=== PATIENT | female | born 1975 | race Caucasian/White ===

== ENCOUNTER 2018-09-05 11:33 | Outpatient (REF) | payer BC, SELFPAY ==
--- NOTE | 2018-09-05 09:45 | PAPFT_PTH ---
PATIENT: Darlene Valente LOC: [facility] U#:[id number] AGE/SX: 43/F ROOM: RE09/05/[address]: IRMA Smart : 1975 BED: DIS: 09/05/2018 SPEC #: [id number] RECD: 09/05/18 13:07 STATUS: ARIANE REClem #: [id number] CEFERINO: 09/05/18 09:[address]: Libby Henderson DEPT: [facility] Cytology RECD BY: Fabi Mckeon ENTERED: 09/05/18 13:07 SP TYPE: PAPFT OTHR DR: Yenifer Iqbal Tissues: 1 - CX/ENDOCX FOR PAP SMEARS Procedures: PAP THIN PREP/UVM Screening Comments: [id number]
== END 2018-09-05 11:53 ==
LOC: LBN 11:33
PROVIDERS: PCP Physician Assistant Medical; Visit Provider Nurse Practitioner Family
DX: Z12.4 Encounter for screening for malignant neoplasm of cervix (principal)
CPT/HCPCS: 88142

== ENCOUNTER 2019-10-24 14:00 | Outpatient (REF) | payer BC, SELFPAY ==
--- NOTE | 2019-10-24 13:15 | PAPFT_PTH ---
PATIENT: Darlene Valente LOC: [facility] U#:[id number] AGE/SX: 44/F ROOM: RE10/24/[address]: IRMA Smart : 1975 BED: DIS: 10/24/2019 SPEC #: [id number] RECD: 10/27/19 12:56 STATUS: ARIANE REClem #: [id number] CEFERINO: 10/24/19 13:[address]: Libby Henderson DEPT: [facility] Cytology RECD BY: Fabi Mckeon ENTERED: 10/27/19 12:56 SP TYPE: PAPFT OTHR DR: Yenifer Iqbal Tissues: 1 - CX/ENDOCX FOR PAP SMEARS Procedures: PAP THIN PREP/UVM Screening HPV DNA PROBE Comments: [id number]
== END 2019-10-24 14:20 ==
LOC: LBN 14:00
PROVIDERS: PCP Physician Assistant Medical; Visit Provider Nurse Practitioner Family
DX: Z12.4 Encounter for screening for malignant neoplasm of cervix (principal); Z11.51 Encounter for screening for human papillomavirus (HPV)
CPT/HCPCS: 88142; 87624

== ENCOUNTER 2019-10-27 01:10 | Outpatient (CLI) | payer BC, SELFPAY ==
--- NOTE | 2019-10-27 06:30 | DI.MAMMO_ITS ---
EXAM: MG MAMMO SCREENING CLINICAL HISTORY: screening,Z12.39 TECHNIQUE: Bilateral full field digital CC and MLO mammographic images were obtained with 3D tomosyn thesis and utilizing computer aided detection (CAD). COMPARISON: Available for comparison. FINDINGS: Masses/Architectural Distortion: None seen. Microcalcifications: No suspicious pleomorphic-type are seen. Skin Thickening/Nipple Retraction: None. IMPRESSION: 1. No significant interval change with no specific features of malignancy noted. 2. Unless there is more urgent need, screening mammography is recommended, as per [employer] guidelines. BI-RADS Category 1 - Negative Breast Density - Category B - Scattered areas of fibroglandular density A negative radiographic report should not delay biopsy if a dominant or clinically suspicious mass is present. Up to ten percent of cancers are not identified on mammography. A negative report may reinforce clinical impression. Adenosis and dense breasts may obscure an underlying neoplasm. False positive reports average 6 to 10%. Patient will receive a letter notifying them of these results.
== END 2019-10-27 01:30 ==
PROVIDERS: PCP Physician Assistant Medical; Visit Provider Nurse Practitioner Family
DX: Z12.31 Encounter for screening mammogram for malignant neoplasm of breast (principal)
CPT/HCPCS: 77063; 77067

== ENCOUNTER 2021-02-04 15:23 | Outpatient (REF) | payer BC, SELFPAY ==
--- NOTE | 2021-02-04 15:00 | PAPFT_PTH ---
PATIENT: Darlene Valente LOC: [facility] U#:[id number] AGE/SX: 45/F ROOM: RE02/04/[address]: IRMA Smart : 1975 BED: DIS: 02/04/2021 SPEC #: [id number] RECD: 02/04/21 17:07 STATUS: ARIANE SALES #: [id number] CEFERINO: 02/04/21 15:[address]: Libby Henderson DEPT: [facility] Cytology RECD BY: Fabi Mckeon ENTERED: 02/04/21 17:07 SP TYPE: PAPFT OTHR DR: Yenifer Iqbal Tissues: 1 - CX/ENDOCX FOR PAP SMEARS Procedures: PAP THIN PREP/UVM Screening HPV DNA PROBE Comments: [id number]
== END 2021-02-04 15:24 | disposition home or self-care (01) ==
LOC: LBN 15:23
PROVIDERS: PCP Physician Assistant Medical; Visit Provider Nurse Practitioner Family
DX: Z12.4 Encounter for screening for malignant neoplasm of cervix (principal); Z87.410 Personal history of cervical dysplasia; Z11.51 Encounter for screening for human papillomavirus (HPV)
CPT/HCPCS: 88142; 87624

== ENCOUNTER 2022-07-03 08:57 | Emergency (ER) | payer BC, SELFPAY ==
--- NOTE | 2022-07-03 09:00 | DI.US_ITS ---
Exam(s) US ABDOMEN LIMITED EXAM: US ABDOMEN LIMITED CLINICAL HISTORY: RUQ pain TECHNIQUE: Ultrasound abdomen performed using standard protocol. COMPARISON: No exams were available for comparison FINDINGS: LIVER: Normal size and echogenicity. 1.1 centimeter cyst. GALLBLADDER: Multiple stones, largest measuring 1.9 cm. No evidence of wall thickening. No perichole cystic fluid identified. LEON'S SIGN: Negative. BILIARY SYSTEM: No intrahepatic or extrahepatic biliary ductal dilation. RIGHT KIDNEY: Normal size. No evidence of renal calculi. No evidence of hydronephrosis. No suspicious renal mass. No cyst identified. PANCREAS: Normal where visualized. ABDOMINAL AORTA AND IVC: Visualized portions normal caliber. ASCITES: None seen. IMPRESSION: Cholelithiasis. DATA REPOSITORY:
[2022-07-03 09:01] VITALS: BP 146/96; PULSE 106; RESP 18; TEMP 36.7; O2SAT 99
--- NOTE | 2022-07-03 09:13 | W.ED.GENAD ---
Discharge Plan Disposition Patient Disposition: Home Condition: Improving Discharge Details Clinical Impression: Acute cholangitis Primary Care Provider: Yenifer Iqbal ED Provider: Kavon King Home Meds and New Rx's Prescriptions: New ondansetron 4 mg tablet,disintegrating 4 mg PO Q6H PRN (Reason: nausea and vomiting) Qty: 14 0RF Continued albuterol sulfate 90 mcg/actuation aerosol powdr breath activated 2 inh IH Q6H PRN multivitamin Tablet 1 tab PO DAILY epinephrine 0.3 MG/0.3 ML auto-injector 0.3 mg IM PRN cholecalciferol (vitamin D3) 2,000 UNIT tablet 2,000 unit PO DAILY L norgest/e.estradiol-e.estrad [Seasonique] 0.15 mg-30 mcg (84)/10 mcg (7) tablets,dose pack,3 month 1 tab PO DAILY Qty: 182 2RF Discharge Instructions Instructions: Gallstones (ED) Additional Instructions: Please continue to take 600 mg of ibuprofen every 6 hours as needed for pain. Use antinausea medication as prescribed and start with clear liquid diet for the next 24 hours and slowly advance your diet as tolerated. Please avoid greasy fatty or fried foods as these may aggravate your symptoms. If you develop any significant worsening of symptoms or severe pain/uncontrollable nausea vomiting return immediately to the emergency department for reassessment and consideration of more emergent surgical follow-up. Stand Alone Forms: Work Release Referrals: [facility] [Provider Group] - 1 week Discharge Data Discharge Date/Time-TO BE ENTERED AT DEPARTURE: 07/03/22 11:07 Medical Decision Making Patient presenting to the emergency department for chief complaint of right upper quadrant abdominal pain. Patient states for the past year this is been going on intermittently and happens approximately once per month. She denies any factors that seem to correlate such as eating, medications, or other obvious factors. She states that typically last hours but this episode has lasted since last night and has not improved at all. She states multiple episodes of nausea and vomiting. Patient denies any urinary or vaginal symptoms, denies any other cold symptoms, does state fever chills but these are subjective and seem to correlate more with patient's pain. Patient has no history of abdominal surgeries, occasionally drinks wine no other significant past medical history. Physical exam shows some tenderness to the right upper quadrant with moderate to deep palpation, some mild CVA tenderness on the right side exam is otherwise unremarkable. Differential diagnosis to include cholangitis/ cholecystitis, enteritis, renal calculi. We will plan on checking labs including lipase, will initially start with ultrasound imaging of the right upper quadrant given high suspicion of gallbladder disease but will consider CT imaging depending on results. Pending results we will give patient IV fluids, ketorolac, and Zofran. Reviewed patient's labs and CBC shows no leukocytosis or shift, platelet count is slightly elevated at 442 otherwise nondiagnostic CBC. Patient is not , urinalysis shows high specific gravity, trace protein trace blood and small amount of bilirubin, small amount of leukocyte Estrace with RBC count of 5-10 and WBC count 10-20. There was moderate amount of bacteria noted but they were calling this a contaminated specimen. We will consider antibiotics with flank pain and UA findings. CMP shows slightly elevated anion gap at 12.2, elevated AST at 68 and ALT of 87 normal bilirubin and alk phos, lipase within normal range and magnesium slightly low at 1.6. Will give oral repletion for magnesium. Received preliminary report from central supply technician that stated significant amount of gallstones but no acute cholecystitis. Reported no wall thickening or fluid around gallbladder. Given this I doubt obstructive cholecystitis. Patient reassessed and states significant improvement of pain and discomfort along with nausea. Did further ask if patient had any urinary symptoms and she denies all urinary symptoms. We will hold off on antibiotics given that patient is asymptomatic. Discussed with patient return and follow-up precautions but will place patient on surgery follow-up list for follow-up preferably in the next week for consideration of scheduled cholecystectomy. Patient was prescribed Zofran and recommended to continue to take ibuprofen as needed for pain. After discussion of diagnosis and plan of care patient has no further needs, questions, or concerns and states clear understanding to return to the emergency department for any worsening symptoms. This documentation was generated using [employer] dictation system, please disregard any oddities of phrase or misspellings. Imaging Data Radiologic Study: Imaging: Ultrasound Radiologist's impression: Exam(s) US ABDOMEN LIMITED EXAM: US ABDOMEN LIMITED CLINICAL HISTORY: RUQ pain TECHNIQUE: Ultrasound abdomen performed using standard protocol. COMPARISON: No exams were available for comparison FINDINGS: LIVER: Normal size and echogenicity. 1.1 centimeter cyst. GALLBLADDER: Multiple stones, largest measuring 1.9 cm. No evidence of wall thickening. No pericholecystic fluid identified. LEON'S SIGN: Negative. BILIARY SYSTEM: No intrahepatic or extrahepatic biliary ductal dilation. RIGHT KIDNEY: Normal size. No evidence of renal calculi. No evidence of hydronephrosis. No suspicious renal mass. No cyst identified. PANCREAS: Normal where visualized. ABDOMINAL AORTA AND IVC: Visualized portions normal caliber. ASCITES: None seen. IMPRESSION: Cholelithiasis. Lab Data Lab results reviewed: Yes I reviewed the patient's lab results. HPI General Mode of arrival: ambulatory. Date/Time Provider Initiated Documentation: 07/03/22 08:57. Limitations to Documentation: no limitations. Information obtained by: patient and RN notes reviewed. History of Present Illness 46 year old F presents to the emergency department with the chief complaint of Abdominal pain, described as moderate, with intensity rated at 3. Quality is described as sharp, and is localized to the abdomen and right (Upper quadrant). Patient reports radiation to back. Patient started experiencing this year(s) and it has been intermittent. No relieving factors improve symptom(s), No exacerbating factors reported . Patient notes fever/chills and loss of appetite. Patient did receive the following treatments prior to arrival, none Related Data Home Medications Medication Instructions Recorded Confirmed epinephrine 0.3 mg/0.3 mL 0.3 mg IM PRN 08/05/13 07/03/22 injection, auto-injector cholecalciferol (vitamin D3) 50 2,000 unit PO DAILY 09/04/16 07/03/22 mcg (2,000 unit) tablet albuterol sulfate 90 mcg/actuation 2 inh inhalation Q6H PRN 10/24/19 07/03/22 breath activated powder inhaler multivitamin 1 tab PO DAILY 10/24/19 07/03/22 L norgest/E estradiol-E estrad 1 tab PO DAILY #182 dose pk 03/14/22 07/03/22 0.15 mg-30 mcg (84)/10 mcg(7) tabs,3mos (Seasonique) ondansetron 4 mg disintegrating 4 mg PO Q6H PRN nausea and 07/03/22 tablet vomiting #14 tabs Previous Rx's Medication Instructions Recorded L norgest/E estradiol-E estrad 1 tab PO DAILY #182 dose pk 03/14/22 0.15 mg-30 mcg (84)/10 mcg(7) tabs,3mos (Seasonique) ondansetron 4 mg disintegrating 4 mg PO Q6H PRN nausea and 07/03/22 tablet vomiting #14 tabs Allergies Allergy/AdvReac Type Severity Reaction Status Date / Time Penicillins Allergy Severe Hives Unverified 07/03/22 09:05 shellfish derived Allergy Severe Anaphylaxsi Unverified 07/03/22 09:05 s General Stated Complaint: Abd Prob JEROME: 3 Review of Systems Constitutional Constitutional: Reports chills, Reports difficulty sleeping, Reports fever(s) (Subjective) and Reports poor appetite ENT Ears, Nose, Mouth, and Throat: Denies sore throat Cardiovascular Cardiovascular: Denies chest pain and Denies dyspnea Respiratory Respiratory: Denies cough and Denies dyspnea Gastrointestinal Gastrointestinal: Reports as per HPI, Reports abdominal pain, Denies melena, Denies change in bowel habits, Denies constipation, Denies diarrhea, Reports nausea and Reports vomiting Genitourinary Genitourinary: Denies hematuria, Denies dysuria, Reports flank pain and Denies vaginal discharge Musculoskeletal Musculoskeletal: Denies back pain Integumentary/Breasts Skin/Breast: Denies rash PFSH All Active Problems (Updated 07/03/22 @ 10:33 by Kavon King NP) Acute cholangitis (Acute) Annual physical exam (Acute) Contraception (Acute 09/02/15) Depression (Acute 08/06/14) Personal history of cervical dysplasia (Acute 03/29/12) 2004 ELIJAH II-III LEEP Rx Medical History Oral contraceptive pill surveillance (03/29/12) Surgical History Cervical Procedure (~2004) LEEP Family History Mother Anxiety Social History Smoking/Tobacco Use Status: Never Smoking risk assessment performed?: Yes Alcohol Intake: current Alcohol Intake frequency: a few times a month Alcohol type: wine Drug use: Never Substance use type: does not use Do you feel safe at home: Yes Do you feel safe in your relationship?: Yes Female Reproductive History Menstrual control method: pills History History 3 Para 3 Hx # Term Pregnancies Multiple births Hx # Pregnancies Ectopic pregnancies AB induced Hx Number of Living Children AB spontaneous Exam Const General: cooperative Orientation: alert, awake and oriented x3 Resp Effort & Inspection: normal respiratory effort and able to speak in complete sentences Auscultation: clear to auscultation bilaterally Cardio Rate: regular rate Rhythm: regular rhythm Heart Sounds: S1 normal and S2 normal GI Palpation: soft, not firm, no guarding, no masses, no pulsatile masses, not rigid, no splenomegaly and tender in the RUQ; not at McBurney's point, Leon's sign negative and Rovsing's sign negative Auscultation: normal bowel sounds General: CVA tenderness on the right Back/Spine/Pelvis Back: CVA tenderness Skin General skin exam: no rashes or lesions noted Neuro General: patient alert, patient awake, patient oriented x3, gait normal and moves all extremities Course Vital Signs Vital signs: Vital Signs Temperature 36.7 C 07/03/22 09:01 Pulse 106 H 07/03/22 09:01 Respiratory Rate 18 07/03/22 09:01 Blood Pressure 146/96 H 07/03/22 09:01 Pulse Oximetry 99 07/03/22 09:01 Temperature 36.7 C 07/03/22 09:01 Temperature Source Temporal Artery Scan 07/03/22 09:01 Pulse 106 H 07/03/22 09:01 Respiratory Rate 18 07/03/22 09:01 Respiratory Effort 07/03/22 09:03 Blood Pressure 146/96 H 07/03/22 09:01 Blood Pressure Position Sitting 07/03/22 09:01 Pulse Oximetry 99 07/03/22 09:01 Oxygen Delivery Method Room Air 07/03/22 09:01 Oxygen Flow Rate 0 07/03/22 09:01 Pain Level 4 07/03/22 09:03 PAWSS Have you Been Recently Intoxicated or Drunk Within the Last 30 days?: No Have you Ever Experienced Previous Episodes of Alcohol Withdrawal?: No Have you ever Experienced Withdrawal Seizures?: No Have you ever Experienced Delirium Tremens(DT)s?: No Have you ever undergone Alcohol Rehabilitation Treatment (i.e, inpt ot outpatient treatment programs)?: No Have you ever Experienced Blackouts?: No Have you ever Combined Alcohol with other Downers within the last 90 days?: No Have you ever Combined Alcohol with any other Substance of Abuse during the last 90 days?: No Result: 0
[2022-07-03] MEDS: Ketorolac 15 MG/ML VIAL IVP (09:25)
[2022-07-03] MEDS: Ondansetron 4 MG/2 ML VIAL IVP (09:25)
[2022-07-03 09:38] LABS: Abs Immature Grans 0.03 10^3/uL (0.0-0.06); Absolute Basophil Count 0.04 10^3/uL (0.0-0.2); Absolute Eosinophil Count 0.07 10^3/uL (0.0-0.7); Absolute Lymphocyte Count 2.34 10^3/uL (1.2-3.4); Absolute Monocyte Count 0.66 10^3/uL (0.1-0.8); Absolute Neutrophil Count 6.02 10^3/uL (1.2-6.7); Basophils % 0.4; Eosinophils % 0.8; HCT 36.4 % (36.0-46.0); HGB 11.7 g/dL (11.2-15.7); Immature Grans % 0.3; Lymphocytes % 25.5; MCH 27.1 pg (27.0-33.0); MCHC 32.1 % (32.0-36.0); MCV 85 fL (80-95); MPV 10.5 fL (8.0-11.0); Monocytes % 7.2; Neutrophils % 65.8; Platelet Count 442 10^3/uL (130-400); RBC 4.31 10^6/uL (3.93-5.22); RDW 14.4 % (11.7-14.6); RDW-SD 44.6 fL; WBC 9.16 10^3/uL (4.4-10.8)
[2022-07-03 09:40] LABS: Bilirubin Small (Negative); Blood Trace-intact (Negative); Clarity Sl Cloudy (Clear); Glucose Negative (Negative); Ketones Negative (Negative); Leukocyte Esterase Small (Negative); Nitrite Negative (Negative); Specific Gravity >= 1.030 (1.005-1.025); Urobilinogen 0.2 EU/dL (Up TO 0.2); pH 5.5 (5-8)
[2022-07-03 09:55] LABS: Bacteria Moderate HPF (Negative); C & S Indicated? No/Sq. Contamination; Casts Negative LPF (Negative); Crystals Negative HPF (Negative); Epithelial Cells Many HPF (Negative); Mucus Moderate (Negative)
[2022-07-03] MEDS: Normal Saline 1,000 ML 1000 ML IV (10:14)
[2022-07-03 10:17] LABS: ALT 87 U/L (14-59); AST 68 U/L (15-37); Albumin 3.8 g/dL (3.4-5.0); Alkaline Phosphatase 97 U/L (46-116); Anion Gap 12.2 mmol/L (3-11); BUN 11 mg/dL (7-18); Bilirubin, Total 0.6 mg/dL (0.2-1.0); CO2 23.8 mmol/L (21.0-32.0); CREATININE 0.9 mg/dL (0.55-1.02); Calcium 9.1 mg/dL (8.5-10.1); Chloride 105 mmol/L (98-107); Estimated GFR 80.34 (mL/min/1.73m2); Glucose 97 mg/dL (74-106); Lipase 189 U/L (73-393); Magnesium 1.6 mg/dL (1.8-2.4); Potassium 3.5 mmol/L (3.5-5.1); Sodium 141 mmol/L (136-145); Total Protein 7.8 g/dL (6.4-8.2)
--- NOTE | 2022-07-03 10:55 | NUR.NOTE ---
referral for general surgery requested for evaluation of gallstones and gallbladder. I have added this to the case management sheet. CLB
[2022-07-03 10:59] VITALS: BP 110/82; PULSE 69; RESP 16; O2SAT 100
[2022-07-03] MEDS: Magnesium Oxide 400 MG TAB PO (10:59)
== END 2022-07-03 11:07 | disposition home or self-care (01) ==
PROVIDERS: Emergency Provider Nurse Practitioner Family; PCP Physician Assistant Medical
DX: K83.09 Other cholangitis (principal); R79.89 Other specified abnormal findings of blood chemistry; R74.01 Elevation of levels of liver transaminase levels
CPT/HCPCS: 36415; 80053; 81025; 83690; 96361; 96374; 96375; 99284; 76705; 81003; 81015; 83735; 85025; J1885; J2405

== ENCOUNTER 2022-07-11 12:28 | Outpatient (CLI) | payer BC, SELFPAY ==
[2022-07-11 11:55] LABS: HCT 32.9 % (36.0-46.0); HGB 10.4 g/dL (11.2-15.7); MCH 26.9 pg (27.0-33.0); MCHC 31.6 % (32.0-36.0); MCV 85 fL (80-95); MPV 10.3 fL (8.0-11.0); Platelet Count 340 10^3/uL (130-400); RBC 3.86 10^6/uL (3.93-5.22); RDW 15.3 % (11.7-14.6); RDW-SD 47.4 fL; WBC 5.56 10^3/uL (4.4-10.8)
[2022-07-11 13:19] LABS: ALT 24 U/L (14-59); AST 16 U/L (15-37); Albumin 3.7 g/dL (3.4-5.0); Alkaline Phosphatase 69 U/L (46-116); Anion Gap 9.7 mmol/L (3-11); BUN 11 mg/dL (7-18); Bilirubin, Total 0.3 mg/dL (0.2-1.0); C-Reactive Protein 0.27 mg/dL (0.0-0.3); CO2 25.3 mmol/L (21.0-32.0); Calcium 9.3 mg/dL (8.5-10.1); Chloride 106 mmol/L (98-107); Glucose 93 mg/dL (74-106); Potassium 3.6 mmol/L (3.5-5.1); Sodium 141 mmol/L (136-145); Total Protein 7.3 g/dL (6.4-8.2)
[2022-07-11 14:08] LABS: Calculated LDL 192 mg/dL (<100); Cholesterol 260 mg/dL (<200); HDL Cholesterol 50 mg/dL (40-60); Triglyceride 94 mg/dL (<150)
[2022-07-13 11:55] LABS: Ferritin 9 ng/mL (8-252); Vitamin B12 228 pg/mL (193-986)
== END 2022-07-11 12:29 | disposition home or self-care (01) ==
LOC: LBO 12:29
PROVIDERS: PCP Physician Assistant Medical; Visit Provider Surgery
DX: K80.12 Calculus of gallbladder with acute and chronic cholecystitis without obstruction (principal); K83.09 Other cholangitis; R79.89 Other specified abnormal findings of blood chemistry
CPT/HCPCS: 36415; 80053; 80061; 85027; 82607; 82728; 86140

== ENCOUNTER 2022-07-14 10:17 | Day surgery (SDC) | payer BC, SELFPAY ==
--- NOTE | 2022-07-13 21:09 | W.PM.DSUDISC ---
Date of service: 07/14/22 Time of Service: 14:22 Discharge Plan Disposition Patient Disposition: Home Condition: Good Discharge Details Reason For Visit: Cholecystectomy Attending Provider: Rodrigo Griffith Primary Care Provider: Yenifer Iqbal Home Meds and New Rx's Prescriptions: New tramadol 50 mg tablet 50 mg PO Q8H PRN (Reason: pain) Qty: 9 0RF Rx Instructions: Take 1 tablet by mouth up to every 8 hours if needed for severe pain. Do not drive while using this medication. Continued albuterol sulfate 90 mcg/actuation aerosol powdr breath activated 2 inh IH Q6H PRN multivitamin Tablet 1 tab PO DAILY levofloxacin 500 mg tablet 500 mg PO DAILY Qty: 7 0RF prochlorperazine maleate [Compazine] 5 mg tablet 5 mg PO Q6H PRN PRN (Reason: nausea and vomiting) Qty: 10 0RF epinephrine 0.3 MG/0.3 ML auto-injector 0.3 mg IM PRN cholecalciferol (vitamin D3) 2,000 UNIT tablet 2,000 unit PO DAILY L norgest/e.estradiol-e.estrad [Seasonique] 0.15 mg-30 mcg (84)/10 mcg (7) tablets,dose pack,3 month 1 tab PO DAILY Qty: 182 2RF Discharge Instructions Instructions: Laparoscopic Cholecystectomy (GEN) Additional Instructions: 1. Resume all of your medications. 2. Okay to use tylenol and ibuprofen over the counter as needed. Use tramadol as needed for severe pain. 3. Ice packs and heating pads are fine to use for pain 4. Leave bandage in place for 24 hours, then remove. 5. Shower with warm soapy water. Pat dry. Use a bandaid if needed to protect your clothing. 6. No soaking or tub baths until I see you in the office. 7. No heavy lifting until I see you in the office. 8.Call the office (or go directly to the emergency room after hours) if you notice any of the following: Develop chills (warm to touch), or if you have a thermometer and your temperature is above 101 Difficulty breathing or difficultly swallowing Persistent vomiting Any bleeding ? exceeding one tablespoon 9. Call your physician if the site where your intravenous was started becomes red, swollen, painful, and warm to touch. Referrals: Rodrigo Griffith MD [ [facility] STAFF PHYSICIAN] - Activity:: No heavy lifting Remove Dressings/Wound Care:: 24 hours Shower/Bathe:: 24 hours Diet:: As Tolerated DS: Diagnosis Discharge Diagnosis (1) Cholelithiasis with acute on chronic cholecystitis: Status: Ruled-out Asessment and Plan: Laparoscopic cholecystectomy today. -Follow-up in the office 10 to 14 days
--- NOTE | 2022-07-13 21:12 | W.PM.OP ---
Date of service: 07/14/22 Time of Service: 14:25 Operative Note Operative Note DATE OF PROCEDURE: 07/14/22 PRE-OP DIAGNOSIS: Cholelithiasis POST-OP DIAGNOSIS: same PROCEDURE: Laparoscopic cholecystectomy SURGEON: Rodrigo Griffith RN PROCEDURES: Miri Delaney ANESTHESIA TYPE: General:No Airway Refer to Anesthesia Record ESTIMATED BLOOD LOSS: 50 PATHOLOGY: other (Gallbladder) COMPLICATIONS: None Patient was transported to: PACU Patient's condition: stable Indications: Malik is a 46-year-old woman with multiple episodes of symptomatic biliary colic Procedure Description: After satisfactory induction of general anesthesia, I prepped and draped the abdomen in usual fashion. Next, I began with a periumbilical incision. I dissected down to the fascia and elevated it with Mira clamps. I incised it sharply. Next, I passed a 12 mm operating port in the umbilical site. I secured it to the fascia with 0 Vicryl stitches. I then insufflated the peritoneal cavity. Next I inserted a 5 mm 30 degree scope and examined the underlying viscera. There was no evidence of injury created upon entry. I then placed the patient in some reverse Trendelenburg and left side down positioning. Then, with the assistance of the laparoscope, I used local anesthetic to anesthetize the midepigastric and 2 right upper quadrant port sites. Under the vision of the laparoscope, I passed 3 more 5 mm ports. I then grasped the gallbladder fundus and elevated cephalad. There were some adhesions of the greater omentum up onto the dome of the gallbladder that were easily dissected free. I began by dissecting the gallbladder infundibulum. I worked in a lateral to medial fashion. Once I skeletonized the cystic duct and cystic artery, with a satisfactory critical view of safety, I doubly clipped and divided them. I then used electrocautery to dissect the gallbladder off the gallbladder fossa. I passed the gallbladder into an Endo Catch bag and removed it by way of the umbilical site. I examined the surgical field. It was hemostatic. I then removed the 5 mm ports under the vision of the laparoscope. Finally, I removed the umbilical port site and closed the fascia with Vicryl stitches. Sites were irrigated, and the skin was closed with subcuticular stitches. Bandages were applied, patient was awakened from anesthesia, and transferred to the recovery unit.
[2022-07-14] VITALS (10 sets, daily range): BP systolic 105–151; BP diastolic 63–113; PULSE 72–90; RESP 16–22; TEMP 36.4–37; O2SAT 93–100; BMI 34.2
[2022-07-14] MEDS: Acetaminophen 500 MG TAB 1000 MG PO (11:04)
[2022-07-14] MEDS: Gabapentin 300 MG CAP 600 MG PO (11:05)
--- NOTE | 2022-07-14 11:08 | ANES.PREOP_ITS ---
General Info Date of Service Date Performed: 07/14/22 Height: 5 ft 6 in Weight: 96.2 kg Body Mass Index (BMI): 34.2 Surgical Procedure: Operation Date: 07/14/22 11:40 Proposed Procedure Side Surgeon p Cholecystectomy Laparoscopic, Possible Open, Possible Cholangiogram Rodrigo Griffith MD Meds Allergies and Home Medications Allergies Allergy/AdvReac Type Severity Reaction Status Date / Time Penicillins Allergy Severe Anaphylaxis Unverified 07/14/22 10:45 shellfish derived Allergy Severe Anaphylaxsi Unverified 07/14/22 10:45 s Home Medication Medication Instructions Recorded epinephrine 0.3 mg/0.3 mL 0.3 mg IM PRN 08/05/13 injection, auto-injector cholecalciferol (vitamin D3) 50 2,000 unit PO DAILY 09/04/16 mcg (2,000 unit) tablet albuterol sulfate 90 mcg/actuation 2 inh inhalation Q6H PRN 10/24/19 breath activated powder inhaler multivitamin 1 tab PO DAILY 10/24/19 L norgest/E estradiol-E estrad 1 tab PO DAILY #182 dose pk 03/14/22 0.15 mg-30 mcg (84)/10 mcg(7) tabs,3mos (Seasonique) levofloxacin 500 mg tablet 500 mg PO DAILY #7 tabs 07/11/22 prochlorperazine maleate 5 mg 5 mg PO Q6H PRN PRN nausea and 07/11/22 tablet (Compazine) vomiting #10 tabs Current Visit Medications: Current Medications Generic Name Dose Route Start Last Admin Trade Name Freq PRN Reason Stop Dose Admin Acetaminophen 1,000 mg 07/14/22 06:00 07/14/22 11:04 Acetaminophen 500 Mg Tab PO 07/14/22 23:59 1,000 mg PREOP PERLA Administration Gabapentin 600 mg 07/14/22 06:00 07/14/22 11:05 Gabapentin 300 Mg Cap PO 07/14/22 23:59 600 mg PREOP PERLA Administration Ringer's Solution 1,000 mls @ 80 mls/hr 07/14/22 06:00 IV 07/14/22 23:59 INFUSION PERLA Levofloxacin 750 mg in 150 mls @ 100 mls/hr 07/14/22 06:00 Levaquin Premixed Bag IVPB 07/14/22 16:00 PREOP PERLA IV Miscellaneous Supplies 1 each 07/14/22 06:00 Iv Access IV 07/14/22 23:59 DIRECTED PERLA Sodium Chloride 0 ml 07/14/22 06:00 Normal Saline Flush 10 Ml Syr IV 07/14/22 23:59 PRN PRN Sodium Chloride 0 ml 07/14/22 06:00 Normal Saline 10 Ml Vial IJ 07/14/22 23:59 DIRECTED PRN Sterile Water 0 ml 07/14/22 06:00 Water,Injection,Sterile 10 Ml Vial IJ 07/14/22 23:59 DIRECTED PRN PFSH Active Problems Active Problems: Problem Status Onset Code Personal history of cervical dysplasia 03/29/12 Z87.410 Depression 08/06/14 F32.9 Contraception 09/02/15 Z78.9 Annual physical exam Z00.00 Cholelithiasis with acute on chronic cholecystitis K80.12 Anemia D64.9 Other iron deficiency anemias D50.8 Elevated lipids E78.5 Medical History Medical History Asthma triggers: cold weather/exercise/illness Oral contraceptive pill surveillance (03/29/12) Surgical History Surgical History Cervical Procedure (~2004) LEEP History of excision of pilonidal cyst History of lateral meniscus repair of left knee Tobacco Smoking/Tobacco Use Status: Never Alcohol Alcohol Intake: current Alcohol intake frequency: a few times a month Alcohol type: wine Substance Use Substance use: Never Substance use type: does not use Prental History History 3 Para 3 Hx # Term Pregnancies Multiple births Hx # Pregnancies Ectopic pregnancies AB induced Hx Number of Living Children AB spontaneous Vital Signs and Lab Results Vital Signs Most Recent Vital Signs in EMR: Most Recent Vital Signs Temp Pulse Resp BP Pulse Ox 37 C 85 18 123/79 100 07/14/22 10:41 07/14/22 10:41 07/14/22 10:41 07/14/22 10:41 07/14/22 10:41 Lab Results Blood Type / Crossmatch: No Data to Display Complete Blood Count: White Blood Count 5.56 10^3/uL (4.4-10.8) 07/11/22 11:48 Red Blood Count 3.86 10^6/uL (3.93-5.22) L 07/11/22 11:48 Hemoglobin 10.4 g/dL (11.2-15.7) L 07/11/22 11:48 Hematocrit 32.9 % (36.0-46.0) L 07/11/22 11:48 Platelet Count 340 10^3/uL (130-400) 07/11/22 11:48 Complete Metabolic Panel: Sodium 141 mmol/L (136-145) 07/11/22 11:48 Potassium 3.6 mmol/L (3.5-5.1) 07/11/22 11:48 Chloride 106 mmol/L (98-107) 07/11/22 11:48 Carbon Dioxide 25.3 mmol/L (21.0-32.0) 07/11/22 11:48 BUN 11 mg/dL (7-18) 07/11/22 11:48 Creatinine 1.0 mg/dL (0.55-1.02) 07/11/22 11:48 Est GFR (CKD-EPI 2020) 70.80 (mL/min/1.73m2) 07/11/22 11:48 Magnesium 1.6 mg/dL (1.8-2.4) L 07/03/22 09:20 Calcium 9.3 mg/dL (8.5-10.1) 07/11/22 11:48 Albumin 3.7 g/dL (3.4-5.0) 07/11/22 11:48 Glucose 93 mg/dL (74-106) 07/11/22 11:48 C-Reactive Protein 0.27 mg/dL (0.0-0.3) 07/11/22 11:48 Liver Function Panel: Alanine Aminotransferase (ALT/SGPT) 24 U/L (14-59) 07/11/22 11: 48 Aspartate Amino Transf (AST/SGOT) 16 U/L (15-37) 07/11/22 11:48 Coagulation Panel: No Data to Display Cardiac Panel: No Data to Display Arterial Blood Gas: No Data to Display Venous Blood Gas: No Data to Display Pancreas Panel: Lipase 189 U/L (73-393) 07/03/22 09:20 Thyroid Panel: No Data to Display Infectious Disease: No Data to Display Blood Cultures: No Data to Display Toxicology Panel: No Data to Display Panel: No Data to Display Anesthesia Assessment and Plan Anesthesia History Personal History: No History of Anesthesia Complications and No History of General Anesthesia Family History: No Family History of Anesthesia Complications Exercise Tolerance Exercise Tolerance: Metabolic Equivalents>4 Pertinent Negatives Pertinent Negatives: No Symptoms of GERD and No Major Cardiovascular Symptoms or Complaints Cardiac & Pulmonary Exam Cardiac Exam: Normal S1/S2 Heart Sounds Pulmonary Exam: Clear Bilateral Breath Sounds Implantable Cardiac Device Does patient have a Pacemaker or an ICD?: No Airway Exam Known Difficult Airway: No Mallampati Class: 1 Mouth Opening: Normal (> 3cm) Thyromental Distance: Greater than 3 cm Neck Range of Motion: Full ROM Neck Circumference: Normal Teeth Condition: Normal Dentition ASA Classification ASA Score: ASA 2 Emergency Case?: No NPO Status NPO Status: NPO Clears >2 hours, Solids >8 hours Status Status: Negative HCG Anesthesia Plan Resuscitation Status: Full Code Anesthesia Technique: General Anesthesia Airway Planned: Endotracheal Tube Monitors Used: Standard Monitors
[2022-07-14] MEDS: Lactated Ringers 1,000 ML 80 ML IV (11:23)
[2022-07-14] MEDS: levoFLOXacin 750 MG/150 ML BAG 100 MG IVPB (11:39)
[2022-07-14] MEDS: Bupivacaine 0.25% Pres-Free 30 ML VIAL (13:20)
--- NOTE | 2022-07-14 13:55 | GB_PTH ---
PATIENT: Darlene Valente LOC: [facility] U#:[id number] AGE/SX: 46/F ROOM: RE07/14/[address]: Rodrigo Griffith MD : 1975 BED: DIS: 07/14/2022 SPEC #: [id number] RECD: 07/14/22 17:47 STATUS: ARIANE REQ #: [id number] CEFERINO: 07/14/22 13:[address]: Rodrigo Griffith DEPT: Surgical Specimen RECD BY: Fabi Mckeon ENTERED: 07/14/22 17:47 SP TYPE: GB OTHR DR: Yenifer Iqbal Tissues: 1 - GALLBLADDER Procedures: GROSS AND MICRO LEVEL 3 Comments: [id number]
[2022-07-14] MEDS: Droperidol 5 MG/2 ML VIAL 0.625 MG IVP ×2 (14:43→15:04)
--- NOTE | 2022-07-14 15:57 | W.ANESPOSTOP ---
Postoperative Evaluation Date, Time and Location Date Performed: 07/14/22 Time Performed: 15:57 Patient Location: PACU Vital Signs Most Recent Imported Vital Signs: Most Recent Vital Signs Temp Pulse Resp BP Pulse Ox 37.0 C 81 22 105/63 99 07/14/22 15:21 07/14/22 15:21 07/14/22 15:21 07/14/22 15:21 07/14/22 15:21 Pain Score Most Recent Pain Score: Most Recent Pain Score Pain Level 2 07/14/22 10:41 Assessment Mental Status: Awake (Alert & Oriented to Patient Baseline) Airway and Respiratory Function: Patent airway with normal (patient baseline) respiratory exam Cardiovascular Function: Hemodynamically Stable Hydration Status: Adequately Hydrated Nausea & Vomiting: Active Nausea or Vomiting Present Nausea and Vomiting Management: Nausea and vomiting active, being addressed with medication (Despite patient utilizing all orders for antiemetics, nausea persists. Patient requests to be discharged home. No active emesis. Discussed plan with Dr. Griffith and fariha with patient being discharged. ) Pain: Pain is tolerable per patient Peripheral Nerve Block: Patient did not receive a nerve block
== END 2022-07-14 16:55 | disposition home or self-care (01) ==
PROVIDERS: PCP Physician Assistant Medical; Visit Provider Surgery
PROC: 0FT44ZZ Resection of Gallbladder, Percutaneous Endoscopic Approach (ICD-10-PCS; CPT 47562; principal; 2022-07-14 11:30)
DX: K80.12 Calculus of gallbladder with acute and chronic cholecystitis without obstruction (principal); D50.8 Other iron deficiency anemias; F32.A Depression, unspecified; J45.909 Unspecified asthma, uncomplicated; K82.9 Disease of gallbladder, unspecified
CPT/HCPCS: 47562; 81025; 88304; J1100; J1790; J1885; J1956; J2250; J2405; J2704

== ENCOUNTER 2022-12-08 08:39 | Outpatient (CLI) | payer BC, SELFPAY ==
[2022-12-08 08:55] LABS: Abs Immature Grans 0.02 10^3/uL (0.0-0.06); Absolute Basophil Count 0.05 10^3/uL (0.0-0.2); Absolute Eosinophil Count 0.27 10^3/uL (0.0-0.7); Absolute Monocyte Count 0.49 10^3/uL (0.1-0.8); Absolute Neutrophil Count 2.69 10^3/uL (1.2-6.7); Eosinophils % 5.2; HCT 36.4 % (36.0-46.0); HGB 11.9 g/dL (11.2-15.7); Immature Grans % 0.4; Lymphocytes % 32.6; MCHC 32.7 % (32.0-36.0); MCV 89 fL (80-95); MPV 10.2 fL (8.0-11.0); Monocytes % 9.4; Neutrophils % 51.4; Platelet Count 290 10^3/uL (130-400); RBC 4.11 10^6/uL (3.93-5.22); RDW 13.7 % (11.7-14.6); RDW-SD 44.3 fL; WBC 5.22 10^3/uL (4.4-10.8)
[2022-12-08 10:36] LABS: Calculated LDL 200 mg/dL (<100); Cholesterol 262 mg/dL (<200); HDL Cholesterol 47 mg/dL (40-60); TSH (W/Ref FT4) 1.21 uIU/mL (0.36-3.74); Triglyceride 76 mg/dL (<150)
== END 2022-12-08 08:40 | disposition home or self-care (01) ==
LOC: LBO 08:39
PROVIDERS: PCP Physician Assistant Medical; Visit Provider Nurse Practitioner
DX: E78.5 Hyperlipidemia, unspecified (principal); L60.9 Nail disorder, unspecified; R53.83 Other fatigue
CPT/HCPCS: 36415; 80061; 84443; 85025

== ENCOUNTER 2023-06-20 10:40 | Outpatient (REF) | payer BC, SELFPAY | END 2023-06-20 10:41 | disposition home or self-care (01) | LOC: LBN 10:40 | PROVIDERS: PCP Nurse Practitioner; Visit Provider Obstetrics & Gynecology | DX: N89.8 Other specified noninflammatory disorders of vagina (principal) | CPT/HCPCS: 87480; 87510; 87660 ==

== ENCOUNTER → 2023-07-03 03:23 | Outpatient (CLI) | payer BC, SELFPAY ==
--- NOTE | 2023-07-03 16:30 | DI.MAMMO_ITS ---
Exam(s) MAMMO SCREENING EXAM: MAMMO SCREENING CLINICAL HISTORY: screening TECHNIQUE: Mammograms were interpreted according to the usual protocol including computer analysis w [employer]. CAD system, tomosynthesis and C-view imaging. COMPARISON: 2016 through 2019 FINDINGS: The breasts are composed of scattered fibroglandular densities, Breast Density category B. No suspicious masses or suspicious microcalcifications are seen. No skin thickening or abnormal axillary lymph nodes are seen. There has been no significant change from prior exams. IMPRESSION: BI-RADS Category 1, Negative mammogram Yearly screening mammography is recommended. Breast Density - Category B, scattered fibroglandular densities. A negative radiographic report should not delay biopsy if a dominant or clinically suspicious mass is present. Up to ten percent of cancers are not identified on mammography. A negative report may reinforce clinical impression. Adenosis and dense breasts may obscure an underlying neoplasm. False positive reports average 6 to 10%. Patient will receive a letter notifying them of these results.
== END ==
PROVIDERS: PCP Nurse Practitioner; Visit Provider Obstetrics & Gynecology
DX: Z12.31 Encounter for screening mammogram for malignant neoplasm of breast (principal); K80.00 Calculus of gallbladder with acute cholecystitis without obstruction
CPT/HCPCS: 77063; 77067

== ENCOUNTER 2023-07-09 08:33 | Day surgery (SDC) | payer BC, SELFPAY ==
--- NOTE | 2023-07-08 14:19 | W.PM.DSUDISC ---
Date of service: 07/09/23 Time of Service: 10:38 Discharge Plan Disposition Patient Disposition: Home Condition: Poor Discharge Details Reason For Visit: screening colonoscopy Attending Provider: Rodrigo Griffith Primary Care Provider: Mónica Campbell Home Meds and New Rx's Prescriptions: Continued melatonin gummies 8 mg PO HS PRN citalopram 20 mg tablet 20 mg PO DAILY Qty: 90 3RF epinephrine 0.3 mg/0.3 mL auto-injector 0.3 mg IM PRN Qty: 2 12RF atorvastatin 20 mg tablet 20 mg PO QPM Qty: 90 1RF multivitamin Tablet 1 tab PO DAILY Collagen Skin Renewal 30-833.3 mg tablet 1 tab PO DIRECTED L norgest/e.estradiol-e.estrad 0.15 mg-30 mcg (84)/10 mcg (7) tablets,dose pack,3 month 1 tab PO DAILY Qty: 182 2RF cholecalciferol (vitamin D3) 2,000 UNIT tablet 2,000 unit PO DAILY Discontinued bisacodyl [Dulcolax (bisacodyl)] 5 mg tablet,delayed release (DR/EC) 5 mg PO ONCE Qty: 4 0RF Rx Instructions: Colonoscopy Bowel Prep- Per Instructions polyethylene glycol 3350 17 gram/dose powder 238 g PO ONCE Qty: 238 0RF Rx Instructions: Colonoscopy Bowel Prep- Per Instructions albuterol sulfate 90 mcg/actuation aerosol powdr breath activated 2 inh IH Q6H PRN Discharge Instructions Instructions: Colorectal Polyps (GEN) Additional Instructions: Darlene, We were able to finish your colonoscopy today without any significant issues. I did find 1 polyp. It was quite small, and I removed it completely. Once I have the results on the type of polyp, I will be in touch with my recommendations for your next colonoscopy. If you have any questions in the meantime, please do not hesitate to call at any point. 1. If tolerated, consume a soft, low fiber diet for 1-2 days. 2. Do not drive, drink alcohol, operate machinery, make critical decisions, or do activities that require coordination or balance for 24 hours. 3. Because air was put into your colon during the procedure, expelling air from your rectum (passing gas or farting) is normal. 4. You may not have a bowel movement for 1-3 days because of the colonoscopy prep. This is normal. 5. Go directly to the emergency room if you notice any of the following: Develop chills (warm to touch), or if you have a thermometer and your temperature is above 101 Difficulty breathing or difficultly swallowing Persistent vomiting Severe abdominal pain, other than gas cramps Severe chest pain Black, tarry stools Any bleeding ? exceeding one tablespoon 6. Call your physician if the site where your intravenous was started becomes red, swollen, painful, and warm to touch. 7. Your physician has reviewed your pre-procedure medications. Please continue to take those medications as previously ordered. You will be given specific information/education regarding any changes to your medications before leaving. Activity:: Activity as Tolerated Diet:: As Tolerated Discharge Orders Discharge Orders: Discharge Order (Routine); Ordered 07/08/23 Ordered By: Rodrigo Griffith DS: Diagnosis Discharge Diagnosis (1) Encounter for screening colonoscopy: Status: Acute Asessment and Plan: Follow-up on polyp results
--- NOTE | 2023-07-08 14:21 | COLE_ITS ---
Date of service: 07/09/23 Time of Service: 10:39 Colonoscopy Report Date of procedure: 07/09/23 Pre-op diagnosis general: screening colonoscopy Post-op diagnosis procedure note: other (Colon polyp) Procedure: Colonoscopy with polypectomy Surgeon: Rodrigo Griffith Anesthesia Type: General:No Airway Estimated blood loss (mL): 5 Pathology: other (0.25 cm polyp at 130 cm from the anus) Complications: None Disposition: same day Indications: Kaylynn is a 47 year old women who needs a screening colonoscopy Prep: Miralax/Dulcolax Procedure Start Time: 10:04 Procedure End Time: 10:30 Retraction Time: 9 Findings: 0.25 cm polyp at 130 cm Procedure Description: After the induction of anesthesia, and with the patient in left lateral decubitus position, I began by performing an external anorectal exam.? Perineum and skin were normal, as was the anal verge.? There are perianal skin tags.? Next, I performed a digital rectal exam.? I did not appreciate any abnormal findings.? Next, I advanced a colonoscope into the rectal vault.? I performed retroflexion.? This was normal.? Using insufflation, I then advanced the colonoscope beyond the rectal folds and into the sigmoid colon before advancing towards the cecum.? The scope was noted to be in the cecum by identification of the ileocecal valve and appendiceal orifice.? I then began withdrawing the colonoscope using repeated irrigation as necessary for full evaluation of the colonic mucosa. Around 130 cm from the anal verge I identified a 0.25 cm polyp. ?It appeared flat in character. ?I was able to remove this with a cold forcep polypectomy. ?I examined the site, and there was minimal bleeding. ?Once this was completed, I continued to withdraw the scope and examine the remainder of the colonic mucosa.?Once the scope was withdrawn to the level of the rectum, great care was taken to examine portions of the rectal folds.? Finally, the scope was withdrawn and the patient was brought to the same-day surgery recovery unit as the anesthetic wore off. ?The findings and instructions were shared with the patient prior to discharge. Sharon Bowel Prep Sharon Bowel Prep Right Colon: 3 Left Colon: 3 Transverse Colon: 3 Total Score: 9
--- NOTE | 2023-07-08 16:00 | W.ANESPRE ---
General Info Date of Service Date Performed: 07/09/23 Height: 5 ft 6.5 in Weight: 100.301 kg Body Mass Index (BMI): 35.2 Surgical Procedure: Operation Date: 07/09/23 09:50 Proposed Procedure Side Surgeon shawna Griffith MD Meds Allergies and Home Medications Allergies Allergy/AdvReac Type Severity Reaction Status Date / Time Penicillins Allergy Severe Anaphylaxis Verified 07/09/23 09:00 shellfish derived Allergy Severe Anaphylaxsi Verified 07/09/23 09:00 s Home Medication Medication Instructions Recorded cholecalciferol (vitamin D3) 50 2,000 unit PO DAILY 09/04/16 mcg (2,000 unit) tablet citalopram 20 mg tablet 20 mg PO DAILY #90 tabs 11/29/22 epinephrine 0.3 mg/0.3 mL 0.3 mg (0.3 mL) IM PRN #2 ea 11/29/22 injection, auto-injector melatonin gummies 8 mg PO HS PRN 11/29/22 atorvastatin 20 mg tablet 20 mg PO QPM #90 tabs 01/16/23 L norgest/E estradiol-E estrad 1 tab PO DAILY #182 dose pk 06/20/23 0.15 mg-30 mcg (84)/10 mcg(7) tabs,3mos ascorbic acid 30 mg-collagen, 1 tab PO DIRECTED 06/20/23 hydrolyzed 833.3 mg tablet (Collagen Skin Renewal) multivitamin 1 tab PO DAILY 06/20/23 Current Visit Medications: Current Medications Generic Name Dose Route Start Last Admin Trade Name Freq PRN Reason Stop Dose Admin Hyoscyamine Sulfate 0.125 mg 07/08/23 14:22 Hyoscyamine 0.125 Mg Sl/Oral/Chew SL 08/07/23 14:21 DIRECTED PRN Ringer's Solution 1,000 mls @ 80 mls/hr 07/09/23 06:00 IV 08/05/23 23:59 INFUSION [facility] IV Miscellaneous Supplies 1 each 07/09/23 06:00 Iv Access IV 08/05/23 23:59 DIRECTED [facility] Ondansetron HCl 4 mg 07/08/23 14:22 Ondansetron 4 Mg/2 Ml Vial IVP 08/07/23 14:21 Q4H PRN PRN Nausea / Vomiting Sodium Chloride 0 ml 07/09/23 06:00 Normal Saline Flush 10 Ml Syr IV 08/05/23 23:59 PRN PRN Sodium Chloride 0 ml 07/09/23 06:00 Normal Saline 10 Ml Vial IJ 08/05/23 23:59 DIRECTED PRN Sterile Water 0 ml 07/09/23 06:00 Water,Injection,Sterile 10 Ml Vial IJ 08/05/23 23:59 DIRECTED PRN PFSH Active Problems Active Problems: Problem Status Onset Code Encounter for screening colonoscopy Z12.11 Vitamin D deficiency E55.9 Obesity E66.9 Hyperlipidemia E78.5 Decreased hearing of both ears H91.93 Depression 08/06/14 F32.9 Other iron deficiency anemias D50.8 Elevated lipids E78.5 Medical History Medical History SULEMA (stress urinary incontinence, female) Asthma triggers: cold weather/exercise/illness Oral contraceptive pill surveillance (03/29/12) Personal history of cervical dysplasia (03/29/12) 2004 ELIJAH II-III LEEP Rx Surgical History Surgical History Hx of cholecystectomy History of excision of pilonidal cyst History of lateral meniscus repair of left knee Cervical Procedure (~2004) LEEP Tobacco Smoking/Tobacco Use Status: Never Second hand exposure: No Alcohol Alcohol Intake: current Alcohol intake frequency: a few times a month Alcohol type: wine Details: 2-4 times per month, 1-2 at a time(or less) Substance Use Substance use: Never Substance use type: does not use Prental History History 3 Para 3 Hx # Term Pregnancies Multiple births Hx # Pregnancies Ectopic pregnancies AB induced Hx Number of Living Children AB spontaneous Vital Signs and Lab Results Vital Signs Most Recent Vital Signs in EMR: Temp Pulse Resp BP Pulse Ox 36.4 C L 86 16 147/88 H 99 07/09/23 09:03 07/09/23 09:03 07/09/23 09:03 07/09/23 09:03 07/09/23 09:03 Lab Results Blood Type / Crossmatch: No Data to Display Complete Blood Count: No Data to Display Complete Metabolic Panel: No Data to Display Liver Function Panel: No Data to Display Coagulation Panel: No Data to Display Cardiac Panel: No Data to Display Arterial Blood Gas: No Data to Display Venous Blood Gas: No Data to Display Pancreas Panel: No Data to Display Thyroid Panel: No Data to Display Infectious Disease: No Data to Display Blood Cultures: No Data to Display Toxicology Panel: No Data to Display Panel: No Data to Display Anesthesia Assessment and Plan Anesthesia History Personal History: No History of Anesthesia Complications Family History: No Family History of Anesthesia Complications Exercise Tolerance Exercise Tolerance: Metabolic Equivalents>4 Pertinent Negatives Pertinent Negatives: No Symptoms of GERD and No Major Cardiovascular Symptoms or Complaints Cardiac & Pulmonary Exam Cardiac Exam: Normal S1/S2 Heart Sounds Pulmonary Exam: Clear Bilateral Breath Sounds Implantable Cardiac Device Does patient have a Pacemaker or an ICD?: No Airway Exam Known Difficult Airway: No Mallampati Class: 1 Mouth Opening: Normal (> 3cm) Thyromental Distance: Greater than 3 cm Neck Range of Motion: Full ROM Neck Circumference: Normal Teeth Condition: Normal Dentition ASA Classification ASA Score: ASA 2 Emergency Case?: No NPO Status NPO Status: NPO Clears >2 hours, Solids >8 hours Status Status: Negative HCG Anesthesia Plan Resuscitation Status: Full Code Anesthesia Technique: General Anesthesia Airway Planned: Natural Airway Monitors Used: Standard Monitors Preoperative Comments:: 47 yo female for colo. Sig PMHx: asthma, depression, never smoker, occ EtOH. Previous Anes: - lap marissa, glide 3 grade 1, easy mask.
[2023-07-09 09:03] VITALS: BP 147/88; PULSE 86; RESP 16; TEMP 36.4; O2SAT 99
[2023-07-09] MEDS: Lactated Ringers 1,000 ML 80 ML IV (09:07)
[2023-07-09 09:50] VITALS: BMI 35.2
--- NOTE | 2023-07-09 10:24 | BOWEL_PTH ---
PATIENT: Darlene Valente LOC: [facility] U#:[id number] AGE/SX: 47/F ROOM: RE07/09/[address]: Rodrigo Griffith MD : 1975 BED: DIS: 07/09/2023 SPEC #: [id number] RECD: 07/09/23 12:37 STATUS: ARIANE REQ #: [id number] CEFERINO: 07/09/23 10:[address]: Rodrigo Griffith DEPT: Surgical Specimen RECD BY: Fabi Mckeon ENTERED: 07/09/23 12:39 SP TYPE: Bowel OTHR DR: Mónica Campbell APRN Tissues: 1 - BIOPSY BOWEL Procedures: GROSS AND MICRO LEVEL 4 Comments: [id number]
[2023-07-09 10:36] VITALS: BP 114/76; PULSE 72; RESP 18; TEMP 36.3; O2SAT 97
--- NOTE | 2023-07-09 10:57 | W.ANESPOSTOP ---
Postoperative Evaluation Date, Time and Location Date Performed: 07/09/23 Time Performed: 10:57 Patient Location: Day Surgery Unit Vital Signs Most Recent Imported Vital Signs: Most Recent Vital Signs Temp Pulse Resp BP Pulse Ox 36.3 C L 72 18 114/76 97 07/09/23 10:36 07/09/23 10:36 07/09/23 10:36 07/09/23 10:36 07/09/23 10:36 Pain Score Most Recent Pain Score: Most Recent Pain Score Pain Level 0 07/09/23 10:36 Assessment Mental Status: Awake (Alert & Oriented to Patient Baseline) Airway and Respiratory Function: Patent airway with normal (patient baseline) respiratory exam Cardiovascular Function: Hemodynamically Stable Hydration Status: Adequately Hydrated Nausea & Vomiting: No Nausea or Vomiting Pain: Pt. Denies Any Pain Peripheral Nerve Block: Patient did not receive a nerve block
[2023-07-09 11:08] VITALS: BP 140/79; PULSE 64; RESP 16; TEMP 36.3; O2SAT 100
== END 2023-07-09 11:12 | disposition home or self-care (01) ==
LOC: SUR 08:33
PROVIDERS: PCP Nurse Practitioner; Visit Provider Surgery
PROC: 0DJD8ZZ Inspection of Lower Intestinal Tract, Via Natural or Artificial Opening Endoscopic (ICD-10-PCS; CPT 45378; principal; 2023-07-09 09:45)
DX: Z12.11 Encounter for screening for malignant neoplasm of colon (principal); D12.3 Benign neoplasm of transverse colon
CPT/HCPCS: 45380; 81025; 88305; J2704

== ENCOUNTER 2023-07-19 02:03 | Outpatient (CLI) | payer BC, SELFPAY ==
[2023-07-19 07:51] LABS: ALT 23 U/L (14-59); AST 11 U/L (15-37); Calculated LDL 104 mg/dL (<100); Cholesterol 175 mg/dL (<200); HDL Cholesterol 52 mg/dL (40-60); Triglyceride 98 mg/dL (<150)
== END 2023-07-19 02:04 | disposition home or self-care (01) ==
LOC: LBO 02:03
PROVIDERS: Absent Provider Nurse Practitioner; PCP Nurse Practitioner; Visit Provider Nurse Practitioner
DX: E78.5 Hyperlipidemia, unspecified (principal)
CPT/HCPCS: 36415; 80061; 84450; 84460

== ENCOUNTER 2024-09-18 11:25 | Outpatient (REF) | payer BC, SELFPAY ==
--- NOTE | 2024-09-18 10:50 | PAPFT_PTH ---
PATIENT: Darlene Valente LOC: [facility] U#:[id number] AGE/SX: 49/F ROOM: RE09/18/[address]: Terri Aden MD : 1975 BED: DIS: 09/18/2024 SPEC #: [id number] RECD: 09/18/24 12:57 STATUS: ARIANE REQ #: [id number] CEFERINO: 09/18/24 10:[address]: Terri Aden DEPT: [facility] Cytology RECD BY: Fabi Mckeon ENTERED: 09/18/24 12:57 SP TYPE: PAPFT JOANNA DR: Mónica Campbell APRN Tissues: 1 - CX/ENDOCX FOR PAP SMEARS Procedures: PAP THIN PREP/[facility] Screening HPV DNA PROBE Comments: [id number] (HPV 16 & 18/45)
== END 2024-09-18 11:26 | disposition home or self-care (01) ==
LOC: LBN 11:25
PROVIDERS: PCP Nurse Practitioner; Visit Provider Obstetrics & Gynecology
DX: Z12.4 Encounter for screening for malignant neoplasm of cervix (principal); R87.618 Other abnormal cytological findings on specimens from cervix uteri
CPT/HCPCS: 88142; 87624

== ENCOUNTER 2024-10-06 06:31 | Emergency (ER) | payer BC, SELFPAY ==
[2024-10-06 06:40] VITALS: BP 163/104; PULSE 85; RESP 16; TEMP 35.8; O2SAT 100
--- NOTE | 2024-10-06 07:08 | ED.GENADUL_ITS ---
Discharge Plan Disposition Patient Disposition: Home Discharge Details Clinical Impression: Laceration of right thumb, Immunization, tetanus-diphtheria Primary Care Provider: Mónica Campbell ED Provider: Theo Montejo Home Meds and New Rx's Prescriptions: Continued epinephrine 0.3 mg/0.3 mL auto-injector 0.3 mg IM PRN Qty: 2 12RF citalopram 20 mg tablet 20 mg PO DAILY Qty: 90 3RF multivitamin Tablet 1 tab PO DAILY L norgest/e.estradiol-e.estrad 0.15 mg-30 mcg (84)/10 mcg (7) tablets,dose pack,3 month 1 tab PO DAILY Qty: 182 2RF albuterol sulfate 90 mcg/actuation aerosol powdr breath activated 2 inh IH Q6H PRN (Reason: shortness of breath or wheezing) Qty: 1 6RF atorvastatin 20 mg tablet See Rx Instructions .ROUTE .COMPLEX Qty: 90 3RF Dose Instruction: TAKE ONE TABLET BY MOUTH IN THE EVENING Rx Instructions: TAKE ONE TABLET BY MOUTH IN THE EVENING Discharge Instructions Additional Instructions: You were seen in the emergency department for your right thumb laceration which was glue and a bulky dressing which needs to be left in place until Sunday morning. As we discussed, please keep your wound clean, dry and covered. Please do not soak in a tub, swim or engage in any activities which could introduce dirt into your wound. As we discussed if you develop any foul- smelling drainage fevers streaking signs of infection or have any other concerns please return to the emergency department. If your wound begins bleeding after 48 hours please return to the emergency department. Your tetanus was updated. For your pain please take medications as follows: 1. Take acetaminophen (Tylenol), 1,000 mg (two 500 mg tabs) every 6 hours [2. Take ibuprofen (Advil), 400 mg every 6 hours.] HPI General Date/Time Provider Initiated Documentation: 10/06/24 07:08 . HPI Narrative: MDM This is a [id number] normothermic and nontachycardic 49-year-old female with right superficial thumb laceration which will require primary closure with cyanoacrylate glue Surgicel nonadherent dressing and gauze with Coban. Patient has intact range of motion in her right thumb finger so I am not suspicious for tendon injury. No fusiform swelling to suggest flexor tenosynovitis. No pain out of proportion to suggest necrotizing soft tissue infection. Given superficial nature of laceration I am not concerned for osseous abnormality so I do not feel the patient requires an x-ray. Patient is unsure when she last had a tetanus immunization so we will update tetanus today in the ED. Patient and I discussed that if she develop streaking signs of infection fevers or was having any streaking signs of infection that she should return to the emergency department. She understood her return indications and was discharged with empiric trial of expectant outpatient management. I offered her oral analgesia which she declined. We also discussed possibility of nerve block which she also declined. HPI This is a ijmmr-[id number] 49-year-old female right emergency department via private vehicle in the setting of a right thumb laceration. Patient reportedly was making potatoes last night when she lacerated her right thumb. She bandaged her thumb up last night but this morning she noticed persistent bleeding. She is not sure when her last tetanus was updated. She is not on any anticoagulants. She denies any other injuries. She has had full range of motion with her thumb. She rinsed her thumb well last night. Exam General: Well-appearing in no acute distress speaking in complete sentences. Head: Normocephalic, atraumatic. Eye: Extraocular eye movements intact. No conjunctival injection. No scleral icterus. Ear, nose, mouth, throat: Grossly normal inspection. Normal voice, handling secretions normally. Neck: Trachea midline. Cardiovascular: Well-perfused distal extremities. Respiratory: Nonlabored respiration. Gastrointestinal: Nondistended abdomen. Musculoskeletal: Right thumb with an approximately 2 cm x 1 cm superficial laceration with remote skin on the palmar aspect between the IP and thumb tip. At the distal tip of the right thumb there is a more superficial approximately 1 cm avulsion with removed flap. Minor venous oozing. Full range of motion right thumb. Cap refill less than 2 seconds in right thumb. Skin: Normal for age and race, grossly normal temperature and turgor. No acute rash. Neurologic: Alert and appropriate, no apparent acute deficits. Psychiatric: Mood and manner are appropriate. Grooming and personal hygiene are appropriate. Related Data Home Medications ?Medication ?Instructions ?Recorded ?Confirmed epinephrine 0.3 mg/0.3 mL 0.3 mg (0.3 mL) IM PRN #2 ea 11/29/22 10/06/24 injection, auto-injector multivitamin 1 tab PO DAILY 06/20/23 10/06/24 albuterol sulfate 90 mcg/actuation 2 inh inhalation Q6H PRN shortness 08/13/23 10/06/24 breath activated powder inhaler of breath or wheezing #1 ea citalopram 20 mg tablet 20 mg PO DAILY #90 tabs 12/31/23 10/06/24 atorvastatin 20 mg tablet See Rx Instructions .Route 08/18/24 10/06/24 .COMPLEX #90 tabs L norgest/E estradiol-E estrad 1 tab PO DAILY #182 dose pk 09/18/24 10/06/24 0.15 mg-30 mcg (84)/10 mcg(7) tabs,3mos Previous Rx's ?Medication ?Instructions ?Recorded epinephrine 0.3 mg/0.3 mL 0.3 mg (0.3 mL) IM PRN #2 ea 11/29/22 injection, auto-injector albuterol sulfate 90 mcg/actuation 2 inh inhalation Q6H PRN shortness 08/13/23 breath activated powder inhaler of breath or wheezing #1 ea citalopram 20 mg tablet 20 mg PO DAILY #90 tabs 12/31/23 atorvastatin 20 mg tablet See Rx Instructions .Route 08/18/24 .COMPLEX #90 tabs L norgest/E estradiol-E estrad 1 tab PO DAILY #182 dose pk 09/18/24 0.15 mg-30 mcg (84)/10 mcg(7) tabs,3mos Allergies Allergy/AdvReac Type Severity Reaction Status Date / Time Penicillins Allergy Severe Anaphylaxis Verified 10/06/24 06:39 shellfish derived Allergy Severe Anaphylaxsi Verified 10/06/24 06:39 s General Stated Complaint: Laceration JEROME: 3 Course Vital Signs Vital signs: Vital Signs Temperature 35.8 C L 10/06/24 06:40 Pulse 85 10/06/24 06:40 Respiratory Rate 16 10/06/24 06:40 Blood Pressure 163/104 H 10/06/24 06:40 Pulse Oximetry 100 10/06/24 06:40 Temperature 35.8 C L 10/06/24 06:40 Temperature Source Temporal Artery Scan 10/06/24 06:40 Pulse 85 10/06/24 06:40 Respiratory Rate 16 10/06/24 06:40 Blood Pressure 163/104 H 10/06/24 06:40 Blood Pressure Position Sitting 10/06/24 06:40 Pulse Oximetry 100 10/06/24 06:40 Oxygen Delivery Method Room Air 10/06/24 06:40 Oxygen Flow Rate 0 10/06/24 06:40 Pain Level 6 10/06/24 06:48 Procedure Laceration Laceration 1: Date of Procedure: 10/06/24 Time of procedure: 07:38 Provider that performed the procedure: Theo Montejo Standard Time Out Performed: Yes Patient Consented: Verbally Site: hand Side (If applicable): right Description: linear Depth: simple, single layer Pre-repair:: wound explored and irrigated extensively (Patient had irrigated her wound last night.) Skin layer closed with: other (Cyanoacrylate glue which was dried prior to covering with Surgicel and Telfa with Tegaderm prior to gauze and Coban) Medical Decision Making Quality:SDOH Health Related Social Needs: No Data to Display PFSH All Active Problems (Updated 10/06/24 @ 07:18 by Theo Montejo MD) Immunization, tetanus-diphtheria (Acute) Laceration of right thumb (Acute) Tubular adenoma of colon (Acute ~07/09/23) Vitamin D deficiency (Acute) Obesity (Chronic) Hyperlipidemia (Acute) Decreased hearing of both ears (Acute) Depression (Acute 08/06/14) Other iron deficiency anemias (Acute) Elevated lipids (Acute) Medical History (Updated 10/06/24 @ 07:18 by Theo Montejo MD) Encounter for screening colonoscopy SULEMA (stress urinary incontinence, female) Asthma triggers: cold weather/exercise/illness Oral contraceptive pill surveillance (03/29/12) Personal history of cervical dysplasia (03/29/12) 2005 ELIJAH II-III LEEP Rx Surgical History (Updated 07/16/23 @ 11:22 by Juliana Garcia) History of colonoscopy (~06/2023) biopsies Hx of cholecystectomy History of excision of pilonidal cyst History of lateral meniscus repair of left knee Cervical Procedure (~2004) LEEP Family History Mother Anxiety Mother Anxiety Depression Maternal Grandfather Cancer Diabetes Heart disease Hypertension Social History (Updated 06/20/23 @ 12:02 by SANDRA Gaston) Smoking/Tobacco Use Status: Never Second Hand Exposure: No Smoking risk assessment performed?: Yes Alcohol Intake: current Alcohol Intake frequency: a few times a month Alcohol type: wine Details: 2-4 times per month, 1-2 at a time(or less) Drug use: Never Substance use type: does not use Adopted: No Caregiver/Support person: No Foster care: No Household members: family Housing: house Number of Children: 3 number of grandchildren: 0 Communication Needs: None Education Level: master's degree Do you need help understanding health information?: Never current occupation: [employer] Pets and animals: Yes (3) Pets and animals: dog(s) Sexually active: Yes Do you think of yourself as: straight/heterosexual Current gender identity: female What is your relationship status?: How often do you talk on the phone with friends or family?: twice per week How often do you get together with friends or relatives?: once per week Do you belong to any clubs or organized social groups?: no Panel score (0-1 are the most socially isolated patients): 2 What type of physical activity do you participate in: none Lexi/Evangelical: Scientology Special lexi needs: No Seatbelt use: always Helmet use: Yes Drive intox or ride w/intox 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
[2024-10-06] MEDS: Diph,Pertuss(Acell),Tet Vac/Pf 0.5 ML SYR IM (07:53)
[2024-10-06] MEDS: Cellulose,Oxidized 2X3 PKT 1 EACH MC (07:54)
== END 2024-10-06 07:49 | disposition home or self-care (01) ==
PROVIDERS: Emergency Provider Emergency Medicine; PCP Nurse Practitioner
DX: S61.011A Laceration without foreign body of right thumb without damage to nail, initial encounter (principal); X58.XXXA Exposure to other specified factors, initial encounter; Z23 Encounter for immunization
CPT/HCPCS: 12001; 90471; 90715

== ENCOUNTER 2024-11-20 16:43 | Outpatient (CLI) | payer BC, SELFPAY ==
[2024-11-20 16:38] LABS: Abs Immature Grans 0.03 10^3/uL (0.0-0.06); Absolute Basophil Count 0.06 10^3/uL (0.0-0.2); Absolute Eosinophil Count 0.31 10^3/uL (0.0-0.7); Absolute Monocyte Count 0.56 10^3/uL (0.1-0.8); Absolute Neutrophil Count 4.42 10^3/uL (1.2-6.7); Basophils % 0.8 %; Bilirubin Negative (Negative); Blood Trace-intact (Negative); Clarity Clear (Clear); Glucose Negative (Negative); HCT 37.1 % (36.0-46.0); HGB 12.3 g/dL (11.2-15.7); Immature Grans % 0.4 %; Ketones Negative (Negative); Leukocyte Esterase Large (Negative); Lymphocytes % 30.8 %; MCHC 33.2 % (32.0-36.0); MCV 94 fL (80-95); MPV 10.1 fL (8.0-11.0); Monocytes % 7.2 %; Neutrophils % 56.8 %; Nitrite Negative (Negative); Platelet Count 307 10^3/uL (130-400); RBC 3.97 10^6/uL (3.93-5.22); RDW 12.7 % (11.7-14.6); RDW-SD 43.8 fL; Specific Gravity <= 1.005 (1.005-1.025); Urobilinogen 0.2 mg/dL (Up to 0.2); WBC 7.78 10^3/uL (4.4-10.8); pH 5.5 (5-8)
[2024-11-20 17:01] LABS: Bacteria Rare HPF (Negative); C & S Indicated? No/Sq. Contamination; Casts Negative LPF (Negative); Crystals Negative HPF (Negative); Epithelial Cells Moderate HPF (Negative); Mucus Negative (Negative); RBC 0-2 HPF (0-2); WBC 20-50 HPF (0-5)
[2024-11-20 17:25] LABS: ALT 30 U/L (14-59); AST 19 U/L (15-37); Albumin 3.8 g/dL (3.4-5.0); Alkaline Phosphatase 72 U/L (46-116); Anion Gap 10.8 mmol/L (3-11); BUN 15 mg/dL (7-18); Bilirubin, Total 0.2 mg/dL (0.2-1.0); CO2 25.2 mmol/L (21.0-32.0); CREATININE 1.1 mg/dL (0.55-1.02); Calcium 8.9 mg/dL (8.5-10.1); Calculated LDL 107 mg/dL (<100); Chloride 102 mmol/L (98-107); Cholesterol 182 mg/dL (<200); Estimated GFR 61.98 (mL/min/1.73m2); Glucose 128 mg/dL (74-106); HDL Cholesterol 46 mg/dL (>or=50); Potassium 3.5 mmol/L (3.5-5.1); Sodium 138 mmol/L (136-145); TSH 1.23 uIU/mL (0.36-3.74); Total Protein 7.4 g/dL (6.4-8.2); Triglyceride 148 mg/dL (<150)
[2024-11-20 17:27] LABS: Hemoglobin A1C 5.4 % (<5.7)
[2024-11-21 18:56] LABS: HBs Antibody, Quant <3.1 mIU/mL (See Note); Hepatitis B Surface Ab Negative (See Note)
== END 2024-11-20 16:44 | disposition home or self-care (01) ==
LOC: LBO 16:44
PROVIDERS: PCP Nurse Practitioner; Visit Provider Family Medicine
DX: N18.2 Chronic kidney disease, stage 2 (mild) (principal); Z13.9 Encounter for screening, unspecified; D50.8 Other iron deficiency anemias; E66.9 Obesity, unspecified; E78.5 Hyperlipidemia, unspecified; Z11.9 Encounter for screening for infectious and parasitic diseases, unspecified
CPT/HCPCS: 36415; 80053; 80061; 86706; 81003; 81015; 83036; 84443; 85025

== ENCOUNTER 2025-03-05 17:41 | Outpatient (CLI) | payer BC, SELFPAY ==
[2025-03-06 18:10] LABS: FSH 7.7 mIU/mL (See Note); LH 3.9 mIU/mL (See Note)
== END 2025-03-05 17:42 | disposition home or self-care (01) ==
LOC: LBO 17:41
PROVIDERS: PCP Nurse Practitioner; Visit Provider Family Medicine
DX: N95.1 Menopausal and female climacteric states (principal)
CPT/HCPCS: 36415; 83001; 83002